=== PATIENT | male | born 1995 | race Caucasian/White ===

== ENCOUNTER 2018-01-31 19:16 | Emergency (ER) | payer OTHER ==
[2018-01-31] MEDS ORDERED: TETANUS & DIPHTHERIA TOX,ADULT 0.5 ML VIAL ONE (19:49)
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
[2018-01-31 21:01] VITALS: TEMP 98.3
[2018-01-31 21:02] VITALS: BP 120/78; O2SAT 95
== END 2018-01-31 20:56 | disposition home or self-care (01) ==
LOC: ER 19:16
PROC: 0HQ0XZZ Repair Scalp Skin, External Approach (ICD-10-PCS; principal; 2018-01-31)
DX: S01.81XA Laceration without foreign body of other part of head, initial encounter (principal); V89.2XXA Person injured in unspecified motor-vehicle accident, traffic, initial encounter; Y93.89 Activity, other specified; Z88.6 Allergy status to analgesic agent; Z23 Encounter for immunization
CPT/HCPCS: 70450; 72125; 90714; 99285

== ENCOUNTER 2018-02-10 18:14 | Emergency (ER) | payer OTHER ==
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
--- NOTE | 2018-02-10 18:23 | EDPHYS ---
Physician Documentation [facility] Name: Will Wilson Age: 23 yrs Sex: Male : 1995 Arrival Date: 02/10/2018 Time: 18:16 Bed 13 Private MD: ED Physician Canelo Will HPI: 02/10 18:29 This 23 yrs old Male presents to ER via Ambulatory with complaints of Staple snw Removal. 18:29 The patient has pancho on the right frontal area. Previous treatment: The patient was snw initially treated 10 day(s) ago, the care was rendered at [facility]. Sutures/pancho progress: The patient has no c/o's. The wound is well-healing with no redness, swelling, discharge, or dehiscence reported. The patient has not experienced similar symptoms in the past. The patient has not recently seen a physician. no complaints. Historical: - Allergies: 18:18 Ibuprofen (Hives); hj - Home Meds: 18:18 None [Active]; hj - PMHx: 18:18 ADD/ADHD; Anxiety; hj - PSHx: 18:18 None; hj - Immunization history:: Adult Immunizations up to date. - Social history:: Smoking status: Patient/guardian denies using tobacco, Patient/guardian denies using street drugs. - Ebola Screening: : Patient negative for fever greater than or equal to 101.5 degrees Fahrenheit, and additional compatible Ebola Virus Disease symptoms Patient denies exposure to infectious person Patient denies travel to an Ebola-affected area in the 21 days before illness onset. ROS: 18:24 Constitutional: Negative for fever, chills, and weight loss, Eyes: Negative for injury, snw pain, redness, and discharge, ENT: Negative for injury, pain, and discharge, Neck: Negative for injury, pain, and swelling, Cardiovascular: Negative for chest pain, palpitations, and edema, Respiratory: Negative for shortness of breath, cough, wheezing, and pleuritic chest pain, Abdomen/GI: Negative for abdominal pain, nausea, vomiting, diarrhea, and constipation, Back: Negative for injury and pain, : Negative for injury, bleeding, discharge, and swelling, MS/Extremity: Negative for injury and deformity, Skin: Negative for injury, rash, and discoloration, Psych: Negative for depression, anxiety, suicide ideation, homicidal ideation, and hallucinations, Allergy/Immunology: Negative for hives, rash, and allergies. 18:24 Neuro: Positive for of the 5 pancho to right top of head x 10d, here for removal. Exam: 18:24 Constitutional: This is a well developed, well nourished patient who is awake, alert, snw and in no acute distress. Eyes: Pupils equal round and reactive to light, extra-ocular motions intact. Lids and lashes normal. Conjunctiva and sclera are non-icteric and not injected. Cornea within normal limits. Periorbital areas with no swelling, redness, or edema. ENT: Nares patent. No nasal discharge, no septal abnormalities noted. Tympanic membranes are normal and external auditory canals are clear. Oropharynx with no redness, swelling, or masses, exudates, or evidence of obstruction, uvula midline. Mucous membranes moist. Neck: Trachea midline, no thyromegaly or masses palpated, and no cervical lymphadenopathy. Supple, full range of motion without nuchal rigidity, or vertebral point tenderness. No Meningismus. Chest/axilla: Normal chest wall appearance and motion. Nontender with no deformity. No lesions are appreciated. Back: No spinal tenderness. No costovertebral tenderness. Full range of motion. Skin: Warm, dry with normal turgor. Normal color with no rashes, no lesions, and no evidence of cellulitis. MS/ Extremity: Pulses equal, no cyanosis. Neurovascular intact. Full, normal range of motion. Neuro: Awake and alert, GCS 15, oriented to person, place, time, and situation. Cranial nerves II-XII grossly intact. Motor strength 5/5 in all extremities. Sensory grossly intact. Cerebellar exam normal. Normal gait. 18:24 Head/face: Noted is 5 pancho over well healed wound - here for removal. Vital Signs: 18:18 BP 108 / 74; Pulse 67; Resp 18; Temp 97.5(TE); Pulse Ox 98% ; Weight 74.84 kg; Height 5 hj ft. 7 in. (170.18 cm); Pain 0/10; 18:18 Body Mass Index 25.84 (74.84 kg, 170.18 cm) hj MDM: 18:23 Patient medically screened. snw 18:23 Data reviewed: vital signs, nurses notes. Data interpreted: Pulse oximetry: is 98 %. snw Interpretation: normal. Special discussion: Based on the history and exam findings, there is no indication for further emergent testing or inpatient evaluation. I discussed with the patient/guardian the need to see the primary care provider for further evaluation of the symptoms. Medical screen evaluation completed. [facility] emergency medical condition absent. Administered Medications: No medications were administered Disposition: 02/11 06:39 Co-signature as Attending Physician, Canelo Will MD I agree with the assessment and [facility] plan of care. Disposition: 02/10/18 18:23 Discharged to Home. Impression: Encounter for screening, unspecified. - Condition is Stable. - Medication Reconciliation Form, Thank You Letter, Antibiotic Education, Prescription Opioid Use form. - Follow up: Private Physician; When: 2 - 3 days; Reason: Recheck today's complaints, Continuance of care, Re-evaluation by your physician. Follow up: Emergency Department; When: As needed; Reason: Worsening of condition. Signatures: Canelo Will MD MD cha Therrien, Shelly, MANAGER [employer]ARM[employer] MANAGER [employer] Charles Chacon, RN RN hj Sergo Guerra RN RN mg2 Corrections: (The following items were deleted from the chart) 02/10 18:29 18:23 02/10/2018 18:23 Discharged to Home. Impression: Encounter for screening, mg2 unspecified. Condition is Stable. Forms are Medication Reconciliation Form, Thank You Letter, Antibiotic Education, Prescription Opioid Use. Follow up: Private Physician; When: 2 - 3 days; Reason: Recheck today's complaints, Continuance of care, Re-evaluation by your physician. Follow up: Emergency Department; When: As needed; Reason: Worsening of condition. snw
[2018-02-10 18:59] VITALS: BP 108/74; TEMP 97.5; O2SAT 98
== END 2018-02-10 18:29 | disposition home or self-care (01) ==
LOC: ER 18:14
DX: Z48.02 Encounter for removal of sutures (principal)
CPT/HCPCS: 99281

== ENCOUNTER 2018-03-30 19:49 | Emergency (ER) | payer OTHER ==
[2018-03-30] MEDS ORDERED: ONDANSETRON 4 MG (ODT) TAB ONE (20:31)
--- NOTE | 2018-03-30 20:32 | ER ---
Nurse's Notes [facility] Name: Will Wilson Age: 23 yrs Sex: Male : 1995 Arrival Date: 03/30/2018 Time: 19:51 Bed 18 Private MD: Jeet Cobos Diagnosis: Vomiting Presentation: 03/30 19:55 Presenting complaint: Patient states: vomiting this morning. pt denies Diarrhea. pt c/o ak1 abd pain this morning. Transition of care: patient was not received from another setting of care. Onset of symptoms was March 30, 2018. Risk Assessment: Do you want to hurt yourself or someone else? Patient reports no desire to harm self or others. Initial Sepsis Screen: Does the patient meet any 2 criteria? No. Patient's initial sepsis screen is negative. Does the patient have a suspected source of infection? No. Patient's initial sepsis screen is negative. Care prior to arrival: None. 19:55 Method Of Arrival: Ambulatory ak1 19:55 Acuity: CHER 4 ak1 Triage Assessment: 19:57 General: Appears in no apparent distress. Pain: Denies pain. GI: Reports nausea, ak1 vomiting. 20:00 General: Behavior is calm, cooperative, appropriate for age. jb4 Historical: - Allergies: 19:57 Ibuprofen (Hives); ak1 - Home Meds: 19:57 None [Active]; ak1 - PMHx: 19:57 ADD/ADHD; Anxiety; ak1 - PSHx: 19:57 None; ak1 - Immunization history:: Adult Immunizations unknown. - Social history:: Smoking status: Patient/guardian denies using tobacco. - Ebola Screening: : No symptoms or risks identified at this time. Screenin:08 Abuse screen: Denies threats or abuse. Nutritional screening: No deficits noted. jb4 Tuberculosis screening: No symptoms or risk factors identified. Fall Risk None identified. Assessment: 20:08 General: Appears in no apparent distress. comfortable, Behavior is calm, cooperative, jb4 appropriate for age. Pain: Denies pain. Neuro: Level of Consciousness is awake, alert, obeys commands, Oriented to person, place, time, situation. Cardiovascular: Patient's skin is warm and dry. Respiratory: Airway is patent Respiratory effort is even, unlabored, Respiratory pattern is regular, symmetrical. GI: Abdomen is flat, non-distended, Reports I vomited once this morning at work and had some nausea after, but I went home and slept it off. My job just wanted me to come and get checked out. I have not had any nausea or vomiting since. : No signs and/or symptoms were reported regarding the genitourinary system. EENT: No signs and/or symptoms were reported regarding the EENT system. Derm: Skin is intact, Skin is pink, warm \T\ dry. Musculoskeletal: Circulation, motion, and sensation intact. 20:49 Reassessment: Patient appears in no apparent distress at this time. Patient and/or jb4 family updated on plan of care and expected duration. Pain level reassessed. Patient is alert, oriented x 3, equal unlabored respirations, skin warm/dry/pink. Discussed D/c, F/u with pt ,denies questions or concerns. Patient states feeling better. Vital Signs: 19:55 BP 122 / 79; Pulse 90; Resp 18; Temp 97.2; Pulse Ox 98% on R/A; Weight 74.84 kg (R); ak1 Height 5 ft. 7 in. (170.18 cm) (R); Pain 0/10; 20:30 BP 115 / 78; Pulse 62; Resp 16; Pulse Ox 100% on R/A; jb4 19:55 Body Mass Index 25.84 (74.84 kg, 170.18 cm) ak1 ED Course: 19:51 Patient arrived in ED. as 19:52 Jeet Cobos MD is Private Physician. as 19:55 Arm band placed on. ak1 19:56 Triage completed. ak1 20:02 Elio Atkins, BONI is Primary Nurse. jb4 20:08 Patient has correct armband on for positive identification. Bed in low position. Call jb4 light in reach. Side rails up X 1. Pulse ox on. NIBP on. 20:08 No provider procedures requiring assistance completed. jb4 20:09 Brayan Khan MD is Attending Physician. 20:49 Patient did not have IV access during this emergency room visit. jb4 Administered Medications: 20:31 Drug: Zofran 4 mg Route: PO; jb4 Outcome: 20:32 Discharge ordered by . 20:49 Discharged to home ambulatory. jb4 20:49 Condition: stable 20:49 Discharge instructions given to patient, Instructed on discharge instructions, follow up and referral plans. medication usage, Demonstrated understanding of instructions, follow-up care, medications, Prescriptions given X 1. 20:51 Patient left the ED. jb4 Signatures: Jolie Garcia Amber, RN RN ak1 Elio Atkins RN RN jb4 Brayan Khan MD MD gs Corrections: (The following items were deleted from the chart) 22:15 20:08 General: Appears in no apparent distress. comfortable, jb4 jb4 22:16 21:49 Patient did not have IV access during this emergency room visit. jb4 jb4
--- NOTE | 2018-03-30 20:32 | EDPHYS ---
Physician Documentation [facility] Name: Will Wilson Age: 23 yrs Sex: Male : 1995 Arrival Date: 03/30/2018 Time: 19:51 Bed 18 Private MD: Jeet Cobos ED Physician Brayan Khan HPI: 03/30 20:27 This 23 yrs old Male presents to ER via Ambulatory with complaints of gs Vomiting. 20:27 The patient presents to the emergency department with vomiting. Onset: The gs symptoms/episode began/occurred this morning. Possible causes: bad food exposure. The symptoms are aggravated by nothing. The symptoms are alleviated by nothing. Associated signs and symptoms: Pertinent negatives: abdominal pain. Severity of symptoms: At their worst the symptoms were moderate in the emergency department the symptoms have resolved and did so earlier today. The patient has experienced similar episodes in the past, a few times. Historical: - Allergies: 19:57 Ibuprofen (Hives); ak1 - Home Meds: 19:57 None [Active]; ak1 - PMHx: 19:57 ADD/ADHD; Anxiety; ak1 - PSHx: 19:57 None; ak1 - Immunization history:: Adult Immunizations unknown. - Social history:: Smoking status: Patient/guardian denies using tobacco. - Ebola Screening: : No symptoms or risks identified at this time. ROS: 20:27 All other systems are negative. gs Exam: 20:27 Head/Face: Normocephalic, atraumatic. Eyes: Pupils equal round and reactive to light, gs extra-ocular motions intact. Lids and lashes normal. Conjunctiva and sclera are non-icteric and not injected. Cornea within normal limits. Periorbital areas with no swelling, redness, or edema. ENT: Nares patent. No nasal discharge, no septal abnormalities noted. Tympanic membranes are normal and external auditory canals are clear. Oropharynx with no redness, swelling, or masses, exudates, or evidence of obstruction, uvula midline. Mucous membranes moist. Neck: Trachea midline, no thyromegaly or masses palpated, and no cervical lymphadenopathy. Supple, full range of motion without nuchal rigidity, or vertebral point tenderness. No Meningismus. Chest/axilla: Normal chest wall appearance and motion. Nontender with no deformity. No lesions are appreciated. Cardiovascular: Regular rate and rhythm with a normal S1 and S2. No gallops, murmurs, or rubs. Normal PMI, no JVD. No pulse deficits. Respiratory: Lungs have equal breath sounds bilaterally, clear to auscultation and percussion. No rales, rhonchi or wheezes noted. No increased work of breathing, no retractions or nasal flaring. Abdomen/GI: Soft, non-tender, with normal bowel sounds. No distension or tympany. No guarding or rebound. No evidence of tenderness throughout. Back: No spinal tenderness. No costovertebral tenderness. Full range of motion. Skin: Warm, dry with normal turgor. Normal color with no rashes, no lesions, and no evidence of cellulitis. MS/ Extremity: Pulses equal, no cyanosis. Neurovascular intact. Full, normal range of motion. Neuro: Awake and alert, GCS 15, oriented to person, place, time, and situation. Cranial nerves II-XII grossly intact. Motor strength 5/5 in all extremities. Sensory grossly intact. Cerebellar exam normal. Normal gait. 20:27 Constitutional: The patient appears alert, awake. Vital Signs: 19:55 BP 122 / 79; Pulse 90; Resp 18; Temp 97.2; Pulse Ox 98% on R/A; Weight 74.84 kg (R); ak1 Height 5 ft. 7 in. (170.18 cm) (R); Pain 0/10; 20:30 BP 115 / 78; Pulse 62; Resp 16; Pulse Ox 100% on R/A; jb4 19:55 Body Mass Index 25.84 (74.84 kg, 170.18 cm) ak1 MDM: 20:25 Patient medically screened. gs 20:27 Differential diagnosis: gastritis, viral gastroenteritis, gastroenteritis. Data gs reviewed: vital signs, nurses notes. Response to treatment: the patient's symptoms have resolved after treatment, and as a result, I will discharge patient. Administered Medications: 20:31 Drug: Zofran 4 mg Route: PO; jb4 Disposition: 03/30/18 20:32 Discharged to Home. Impression: Vomiting. - Condition is Stable. - Discharge Instructions: Nausea and Vomiting, Adult. - Prescriptions for Zofran 4 mg Oral Tablet - take 1 tablet by ORAL route every 12 hours As needed; 6 tablet. - Work release form, Medication Reconciliation Form, Thank You Letter, Antibiotic Education, Prescription Opioid Use form. - Follow up: Private Physician; When: 2 - 3 days; Reason: Re-evaluation by your physician. Signatures: Mindy Mullen RN RN ak1 Elio Atkins RN RN jb4 Brayan Khan MD MD gs Corrections: (The following items were deleted from the chart) 20:51 20:32 03/30/2018 20:32 Discharged to Home. Impression: Vomiting. Condition is Stable. jb4 Forms are Medication Reconciliation Form, Thank You Letter, Antibiotic Education, Prescription Opioid Use. Follow up: Private Physician; When: 2 - 3 days; Reason: Re-evaluation by your physician. gs
== END 2018-03-30 20:51 | disposition home or self-care (01) ==
LOC: ER 19:49
DX: R11.10 Vomiting, unspecified (principal)
CPT/HCPCS: 99283

== ENCOUNTER 2018-09-28 21:10 | Emergency (ER) | payer OTHER ==
--- NOTE | 2018-09-28 22:15 | EDPHYS ---
Physician Documentation [facility] Name: Will Wilson Age: 23 yrs Sex: Male : 1995 Arrival Date: 09/28/2018 Time: 21:14 Bed 15 Private MD: Jeet Cobos ED Physician Fei Sapp HPI: 09/28 22:08 This 23 yrs old Male presents to ER via Ambulatory with complaints of Fever, jmm Sore Throat, Weakness. 22:08 Onset: The symptoms/episode began/occurred gradually, 3 day(s) ago. Modifying factors: jmm there are no obvious modifying factors. Associated signs and symptoms: Pertinent positives: sinus congestion, sore throat. This is a 23 year old male with a history of ADD/ADHD that presents to the ED with complaints of sore throat, sinus congestion, fever beginning this past Friday. Patient states he is currently on day 3 of Z-Pack. . Historical: - Allergies: 21:24 Ibuprofen (Hives); lp1 - Home Meds: 21:24 Vyvanse oral oral [Active]; lp1 - PMHx: 21:24 ADD/ADHD; Anxiety; lp1 - PSHx: 21:24 None; lp1 - Immunization history:: Adult Immunizations up to date. - Social history:: Smoking status: Patient/guardian denies using tobacco. - Ebola Screening: : No symptoms or risks identified at this time. ROS: 22:08 Constitutional: Positive for fever. jmm 22:08 ENT: Positive for sinus congestion, sore throat. 22:08 All other systems are negative. Exam: 22:08 Constitutional: This is a well developed, well nourished patient who is awake, alert, jmm and in no acute distress. Head/Face: atraumatic. Eyes: EOMI, no conjunctival erythema appreciated 22:08 Neck: Trachea midline, Supple Chest/axilla: Normal chest wall appearance and motion. Cardiovascular: Regular rate and rhythm. No edema appreciated Respiratory: Normal respirations, no respiratory distress appreciated Abdomen/GI: Non distended, soft Skin: General appearance color normal MS/ Extremity: Moves all extremities, no obvious deformities appreciated, no edema noted to the lower extremities Neuro: Awake and alert, normal gait Psych: Behavior is normal, Mood is normal, Patient is cooperative and pleasant 22:08 ENT: TM's: are normal, Posterior pharynx: Airway: normal, Uvula: normal, midline, erythema, that is mild, exudate, is not appreciated. Vital Signs: 21:22 BP 115 / 77; Pulse 89; Resp 18; Temp 99.8(O); Pulse Ox 98% on R/A; Weight 77.11 kg; lp1 Height 5 ft. 7 in. (170.18 cm); Pain 4/10; 22:30 BP 111 / 73; Pulse 78; Resp 16; Pulse Ox 100% on R/A; jb4 21:22 Body Mass Index 26.63 (77.11 kg, 170.18 cm) lp1 MDM: 22:08 Patient medically screened. [facility] 22:14 Data reviewed: vital signs, nurses notes. Counseling: I had a detailed discussion with [facility] the patient and/or guardian regarding: the historical points, exam findings, and any diagnostic results supporting the discharge/admit diagnosis, the need for outpatient follow up, to return to the emergency department if symptoms worsen or persist or if there are any questions or concerns that arise at home. 22:30 ED course: Sore throat may be due to post nasal drip. Patient is alert and non toxic in jmm appearance in the ED. No signs of resp distress are appreciated. Patient advised to continue antibiotics and follow up with Dr. Cobos in 1 to 2 days for reevaluation. Patient was otherwise given strict return precautions. Patient understood and agrees with the plan of care. . Administered Medications: 22:25 Drug: Dexamethasone 10 mg Route: IM; Site: right gluteus; banner 22:38 Follow up: Response: No adverse reaction 4 Disposition: 09/28/18 22:15 Discharged to Home. Impression: Acute pharyngitis. - Condition is Stable. - Discharge Instructions: Pharyngitis. - Medication Reconciliation Form, Thank You Letter, Antibiotic Education, Prescription Opioid Use, Work release form form. - Follow up: Jeet Cobos MD; When: 1 - 2 days; Reason: Recheck today's complaints, Continuance of care, Re-evaluation by your physician. Addendum: 09/30/2018 07:14 Co-signature as Attending Physician, Fei Sapp MD I agree with the assessment and t w4 plan of care. Signatures: Juan Khalil PA PA jmm Pena, Laura, RN RN lp1 Elio Atkins RN RN jb4 Fei Sapp MD MD tw4 Corrections: (The following items were deleted from the chart) 09/28 22:47 22:15 09/28/2018 22:15 Discharged to Home. Impression: Acute pharyngitis. Condition is jb4 Stable. Forms are Medication Reconciliation Form, Thank You Letter, Antibiotic Education, Prescription Opioid Use. Follow up: Jeet Cobos; When: 1 - 2 days; Reason: Recheck today's complaints, Continuance of care, Re-evaluation by your physician. neida
--- NOTE | 2018-09-28 22:15 | ER ---
Nurse's Notes [facility] Name: Will Wilson Age: 23 yrs Sex: Male : 1995 Arrival Date: 09/28/2018 Time: 21:14 Bed 15 Private MD: Jeet Cobos Diagnosis: Acute pharyngitis Presentation: 09/28 21:21 Presenting complaint: Patient states: Sore throat, generalized weakness, fever since lp1 Friday; Seen at [place] and negative for Flu and Strep and sent home with Z-pack prescription; States unknown fever at home, Tylenol last taken 6 hours ago; States vomiting today. Transition of care: patient was not received from another setting of care. Onset of symptoms was September 28, 2018. Risk Assessment: Do you want to hurt yourself or someone else? Patient reports no desire to harm self or others. Initial Sepsis Screen: Does the patient meet any 2 criteria? No. Patient's initial sepsis screen is negative. Does the patient have a suspected source of infection? No. Patient's initial sepsis screen is negative. Care prior to arrival: None. 21:21 Method Of Arrival: Ambulatory lp1 21:21 Acuity: CHER 3 lp1 Historical: - Allergies: 21:24 Ibuprofen (Hives); lp1 - Home Meds: 21:24 Vyvanse oral oral [Active]; lp1 - PMHx: 21:24 ADD/ADHD; Anxiety; lp1 - PSHx: 21:24 None; lp1 - Immunization history:: Adult Immunizations up to date. - Social history:: Smoking status: Patient/guardian denies using tobacco. - Ebola Screening: : No symptoms or risks identified at this time. Screenin:24 Abuse screen: Denies threats or abuse. Abuse screen: Denies injuries from another. lp1 Nutritional screening: No deficits noted. Tuberculosis screening: No symptoms or risk factors identified. Fall Risk None identified. Assessment: 21:48 General: Appears in no apparent distress. uncomfortable, Behavior is calm, cooperative, jb4 appropriate for age. Pain: Denies pain. Neuro: Level of Consciousness is awake, alert, obeys commands, Oriented to person, place, time, situation. Cardiovascular: Patient's skin is warm and dry. Respiratory: Airway is patent Respiratory effort is even, unlabored, Respiratory pattern is regular, symmetrical. GI: No signs and/or symptoms were reported involving the gastrointestinal system. : No deficits noted. EENT: Throat is clear is reddened. Derm: Skin is intact, Skin is pink, warm \T\ dry. Musculoskeletal: Circulation, motion, and sensation intact. 22:42 Reassessment: Patient appears in no apparent distress at this time. Patient and/or jb4 family updated on plan of care and expected duration. Pain level reassessed. Patient is alert, oriented x 3, equal unlabored respirations, skin warm/dry/pink. PT discharged home with friend. Ambulated with steady gate. Vital Signs: 21:22 BP 115 / 77; Pulse 89; Resp 18; Temp 99.8(O); Pulse Ox 98% on R/A; Weight 77.11 kg; lp1 Height 5 ft. 7 in. (170.18 cm); Pain 4/10; 22:30 BP 111 / 73; Pulse 78; Resp 16; Pulse Ox 100% on R/A; jb4 21:22 Body Mass Index 26.63 (77.11 kg, 170.18 cm) lp1 ED Course: 21:14 Patient arrived in ED. es 21:15 Jeet Cobos MD is Private Physician. es 21:22 Triage completed. lp1 21:22 Arm band placed on left wrist. lp1 21:30 Patient has correct armband on for positive identification. Bed in low position. Call jb4 light in reach. Side rails up X 1. Pulse ox on. NIBP on. 21:36 [facility]il [facility] 21:37 Fei Sapp MD is Attending Physician. [facility] 21:42 Elio Atkins, BONI is Primary Nurse. jb4 22:14 Jeet Cobos MD is Referral Physician. [facility] 22:44 No provider procedures requiring assistance completed. Patient did not have IV access jb4 during this emergency room visit. Administered Medications: 22:25 Drug: Dexamethasone 10 mg Route: IM; Site: right gluteus; jb4 22:38 Follow up: Response: No adverse reaction jb4 Outcome: 22:15 Discharge ordered by . [facility] 22:44 Discharged to home ambulatory, with friend. jb4 22:44 Condition: stable 22:44 Discharge instructions given to patient, Instructed on discharge instructions, follow up and referral plans. medication usage, Demonstrated understanding of instructions, follow-up care, medications. 22:47 Patient left the ED. jb4 Signatures: Juan Khalil PA PA jmm Salyer, Edna es Pena, Laura, RN RN lp1 Elio Atkins RN RN jb4 Corrections: (The following items were deleted from the chart) 22:43 21:48 EENT: jb jb 21:30 No provider procedures requiring assistance completed. jb4 jb 21:30 Patient did not have IV access during this emergency room visit. jb4 jb4
[2018-09-28] MEDS ORDERED: DEXAMETHASONE 10 MG/ML VIAL ONE (22:34)
[2018-09-28 22:50] VITALS: TEMP 99.8
[2018-09-28 22:52] VITALS: BP 111/73; O2SAT 100
== END 2018-09-28 22:47 | disposition home or self-care (01) ==
LOC: ER 21:10
DX: J02.9 Acute pharyngitis, unspecified (principal); F90.9 Attention-deficit hyperactivity disorder, unspecified type; F41.9 Anxiety disorder, unspecified; Z88.6 Allergy status to analgesic agent
CPT/HCPCS: J1100

== ENCOUNTER 2020-03-29 15:57 | Emergency (ER) | payer BC ==
[2020-03-29] MEDS ORDERED: IPRATROPIUM BROM 0.5MG/2.5ML ONE (16:19)
[2020-03-29] MEDS ORDERED: NA CHLORIDE 0.9% 1,000 ML ONE (16:19)
[2020-03-29] MEDS ORDERED: DIPHENHYDRAMINE 50 MG/ML VIAL ONE (16:19)
[2020-03-29] MEDS ORDERED: METHYLPREDNISOLONE 125 MG INJ ONE (16:19)
[2020-03-29] MEDS ORDERED: ALBUTEROL 2.5 MG/3 ML NEB SOL ONE (16:19)
[2020-03-29] MEDS ORDERED: FAMOTIDINE 20 MG/2 ML VIAL IV ONE (16:20)
[2020-03-29] MEDS ORDERED: EPINEPHRINE/PF 1 MG/ML AMP ONE (16:22)
--- NOTE | 2020-03-29 18:01 | EDPHYS ---
Physician Documentation [facility] Name: Will Wilson Age: 25 yrs Sex: Male : 1995 Arrival Date: 03/29/2020 Time: 15:59 Bed 2 Private MD: ED Physician Adonis Menard HPI: 03/29 16:19 This 25 yrs old Male presents to ER via Wheelchair with complaints of jr8 Allergic Reaction, Breathing Difficulty. 16:19 The patient presents with difficulty swallowing, itching, redness of skin, shortness of jr8 breath. Onset: The symptoms/episode began/occurred acutely, today. Associated signs and symptoms: The patient has no apparent associated signs or symptoms. Possible causes: NSAIDs, ibuprofen. Severity of symptoms: At their worst the symptoms were moderate in the emergency department the symptoms are unchanged. The patient has experienced a previous episode. The patient has not recently seen a physician. Stated that he has history of NSAID related allergy. Accidently took some today from another person and then started to have allergy symptoms . Historical: - Allergies: 16:17 Ibuprofen (Hives); ss - PMHx: 16:17 ADD/ADHD; Anxiety; ss - Immunization history:: Adult Immunizations up to date. - Social history:: Smoking status: Patient denies any tobacco usage or history of. ROS: 16:19 Eyes: Negative for injury, pain, redness, and discharge, ENT: Negative for injury, jr8 pain, and discharge, Neck: Negative for injury, pain, and swelling, Cardiovascular: Negative for chest pain, palpitations, and edema, Abdomen/GI: Negative for abdominal pain, nausea, vomiting, diarrhea, and constipation, Back: Negative for injury and pain, MS/Extremity: Negative for injury and deformity, Neuro: Negative for headache, weakness, numbness, tingling, and seizure. 16:19 Respiratory: Positive for shortness of breath. 16:19 Skin: Positive for erythema, rash. Exam: 16:19 Eyes: Pupils equal round and reactive to light, extra-ocular motions intact. Lids and jr8 lashes normal. Conjunctiva and sclera are non-icteric and not injected. Cornea within normal limits. Periorbital areas with no swelling, redness, or edema. Neck: Trachea midline, no thyromegaly or masses palpated, and no cervical lymphadenopathy. Supple, full range of motion without nuchal rigidity, or vertebral point tenderness. No Meningismus. Cardiovascular: Regular rate and rhythm with a normal S1 and S2. No gallops, murmurs, or rubs. Normal PMI, no JVD. No pulse deficits. Respiratory: Lungs have equal breath sounds bilaterally, clear to auscultation and percussion. No rales, rhonchi or wheezes noted. No increased work of breathing, no retractions or nasal flaring. Abdomen/GI: Soft, non-tender, with normal bowel sounds. No distension or tympany. No guarding or rebound. No evidence of tenderness throughout. Back: No spinal tenderness. No costovertebral tenderness. Full range of motion. MS/ Extremity: Pulses equal, no cyanosis. Neurovascular intact. Full, normal range of motion. Neuro: Awake and alert, GCS 15, oriented to person, place, time, and situation. Cranial nerves II-XII grossly intact. Motor strength 5/5 in all extremities. Sensory grossly intact. Cerebellar exam normal. Normal gait. 16:19 ENT: Mouth: Lips: moist, Oral mucosa: pink and intact, moist, Gums: pink, Tongue: is moist, Posterior pharynx: Airway: patent, Tonsils: are normal in appearance, Uvula: midline, edematous, swelling, is not appreciated, erythema, that is mild. 16:19 Skin: rash a moderate rash is noted, rash can be described as erythematous, on the face and chest. Vital Signs: 16:04 BP 136 / 100; Pulse 98; Resp 21; Pulse Ox 100% on R/A; Weight 79.38 kg; Height 5 ft. 7 ss in. (170.18 cm); Pain 0/10; 16:18 Resp 14; Pulse Ox 100% on 2 lpm NC; Pain 0/10; ss 17:04 BP 131 / 97; Pulse 89; Resp 18; Pulse Ox 99% on R/A; ph 17:54 BP 117 / 81; Pulse 77; Resp 13; Pulse Ox 100% ; sv 16:04 Body Mass Index 27.41 (79.38 kg, 170.18 cm) MDM: 16:05 Patient medically screened. [facility] 17:59 Data reviewed: vital signs, nurses notes, and as a result, I will discharge patient. jr8 Data interpreted: Pulse oximetry: on room air is 100 %. Interpretation: normal. Counseling: I had a detailed discussion with the patient and/or guardian regarding: the historical points, exam findings, and any diagnostic results supporting the discharge/admit diagnosis, the need for outpatient follow up, a family practitioner, to return to the emergency department if symptoms worsen or persist or if there are any questions or concerns that arise at home. Response to treatment: the patient's symptoms have resolved after treatment. 03/29 16:06 Order name: IV; Complete Time: 16:19 jr8 Administered Medications: 16:10 Drug: EPINEPHrine 1mg/mL 1:1,000 0.5 mg Route: IM; Site: left deltoid; ss 18:20 Follow up: Response: No adverse reaction; Marked relief of symptoms ph 16:12 Drug: NS 0.9% 1000 ml Route: IV; Rate: 1000 ml; Site: right antecubital; ph 18:19 Follow up: Response: No adverse reaction; IV Status: Completed infusion; IV Intake: ph 1000ml 16:13 Drug: SOLU-Medrol 125 mg Route: IVP; Site: right antecubital; ph 18:20 Follow up: Response: No adverse reaction; Marked relief of symptoms ph 16:14 Drug: Benadryl 50 mg Route: IVP; Site: right antecubital; ph 18:20 Follow up: Response: No adverse reaction; Marked relief of symptoms ph 16:15 Drug: Pepcid 20 mg Route: IVP; Site: right antecubital; ph 18:19 Follow up: Response: No adverse reaction; Marked relief of symptoms ph Disposition: 18:13 Co-signature as Attending Physician, Adonis Menard MD. ma2 Disposition: 03/29/20 18:00 Discharged to Home. Impression: Anaphylactic reaction due to adverse effect of correct drug or medicament properly administered. - Condition is Stable. - Discharge Instructions: Anaphylactic Reaction, Adult. - Prescriptions for Pepcid 20 mg Oral Tablet - take 1 tablet by ORAL route every 12 hours for 5 days; 10 tablet. Prednisone 20 mg Oral Tablet - take 2 tablet by ORAL route once daily for 5 days; 10 tablet. - Medication Reconciliation Form, Thank You Letter, Antibiotic Education, Prescription Opioid Use, Work release form form. - Follow up: Private Physician; When: 2 - 3 days; Reason: Recheck today's complaints, Continuance of care, Re-evaluation by your physician. - Problem is new. - Symptoms have improved. - Notes: Benadryl as needed every 6 hours Signatures: Bailey Carias RN RN Torres Thomas PA PA jr8 Juliana Loyola RN RN Adonis Menard MD MD ma2 Corrections: (The following items were deleted from the chart) 18:20 18:00 03/29/2020 18:00 Discharged to Home. Impression: Anaphylactic reaction due to ph adverse effect of correct drug or medicament properly administered. Condition is Stable. Forms are Medication Reconciliation Form, Thank You Letter, Antibiotic Education, Prescription Opioid Use. Follow up: Private Physician; When: 2 - 3 days; Reason: Recheck today's complaints, Continuance of care, Re-evaluation by your physician. Problem is new. Symptoms have improved. jr8
--- NOTE | 2020-03-29 18:01 | ER ---
Nurse's Notes [facility] Hank Name: Will Wilson Age: 25 yrs Sex: Male : 1995 Arrival Date: 03/29/2020 Time: 15:59 Bed 2 Private MD: Diagnosis: Anaphylactic reaction due to adverse effect of correct drug or medicament properly administered Presentation: 03/29 16:04 Chief complaint: Patient states: took Ibuprofen 1 hour ago. Pt reports he is allergic ss to ibuprofen and didn't realize was he was taking. C/o shortness of breath and rash. Coronavirus screen: Client denies travel out of the [place] in the last 14 days. Ebola Screen: Patient denies exposure to infectious person. Patient denies travel to an Ebola-affected area in the 21 days before illness onset. Onset: The symptoms/episode began/occurred suddenly. Anaphylaxis evaluation, difficulty breathing. Initial Sepsis Screen: Does the patient meet any 2 criteria? RR > 20 per min. HR > 90 bpm. Does the patient have a suspected source of infection? No. Patient's initial sepsis screen is negative. Risk Assessment: Do you want to hurt yourself or someone else? Patient reports no desire to harm self or others. Onset of symptoms was March 29, 2020. 16:04 Method Of Arrival: Wheelchair ss 16:04 Acuity: CHER 1 ss Historical: - Allergies: 16:17 Ibuprofen (Hives); ss - PMHx: 16:17 ADD/ADHD; Anxiety; ss - Immunization history:: Adult Immunizations up to date. - Social history:: Smoking status: Patient denies any tobacco usage or history of. Screenin:22 Abuse screen: Denies threats or abuse. Denies injuries from another. Nutritional ph screening: No deficits noted. Tuberculosis screening: No symptoms or risk factors identified. Fall Risk None identified. Assessment: 16:20 General: Appears in no apparent distress. uncomfortable, well groomed, Behavior is ph calm, cooperative, appropriate for age. Pain: Denies pain. Neuro: Level of Consciousness is awake, alert, obeys commands, Oriented to person, place, time, situation. Cardiovascular: Capillary refill < 3 seconds in bilateral fingers Patient's skin is warm and dry. Respiratory: Reports shortness of breath at rest Airway is patent Respiratory effort is even, unlabored, Respiratory pattern is regular, symmetrical, Breath sounds are clear bilaterally. GI: No signs and/or symptoms were reported involving the gastrointestinal system. Derm: Skin is intact, is healthy with good turgor, Skin is pink, warm \T\ dry. face and chest noted to be red. Musculoskeletal: Circulation, motion, and sensation intact. Range of motion: intact in all extremities. 17:03 Reassessment: Patient appears in no apparent distress at this time. Patient and/or ph family updated on plan of care and expected duration. Pain level reassessed. Patient is alert, oriented x 3, equal unlabored respirations, skin warm/dry/pink. Pt slightly drowsy, reports that SOB is improving, chest and face no longer red, VSS, will continue to monitor. 17:58 Reassessment: Patient appears in no apparent distress at this time. Patient and/or ph family updated on plan of care and expected duration. Pain level reassessed. Patient is alert, oriented x 3, equal unlabored respirations, skin warm/dry/pink. Vital Signs: 16:04 BP 136 / 100; Pulse 98; Resp 21; Pulse Ox 100% on R/A; Weight 79.38 kg; Height 5 ft. 7 ss in. (170.18 cm); Pain 0/10; 16:18 Resp 14; Pulse Ox 100% on 2 lpm NC; Pain 0/10; ss 17:04 BP 131 / 97; Pulse 89; Resp 18; Pulse Ox 99% on R/A; ph 17:54 BP 117 / 81; Pulse 77; Resp 13; Pulse Ox 100% ; sv 16:04 Body Mass Index 27.41 (79.38 kg, 170.18 cm) ED Course: 15:59 Patient arrived in ED. ds1 16:05 Torres Thomas PA is PHCP. jr8 16:05 Adonis Menard MD is Attending Physician. jr8 16:10 Inserted saline lock: 20 gauge in left antecubital area, using aseptic technique. ph 16:17 Triage completed. ss 16:18 Juliana Loyola, BONI is Primary Nurse. ph 16:18 Arm band placed on right wrist. ss 16:22 Patient has correct armband on for positive identification. Bed in low position. Call ph light in reach. Side rails up X 1. hospital monitor on. Pulse ox on. NIBP on. Door closed. Noise minimized. Warm blanket given. 18:18 No provider procedures requiring assistance completed. IV discontinued, intact, ph bleeding controlled, No redness/swelling at site. Pressure dressing applied. Administered Medications: 16:10 Drug: EPINEPHrine 1mg/mL 1:1,000 0.5 mg Route: IM; Site: left deltoid; ss 18:20 Follow up: Response: No adverse reaction; Marked relief of symptoms ph 16:12 Drug: NS 0.9% 1000 ml Route: IV; Rate: 1000 ml; Site: right antecubital; ph 18:19 Follow up: Response: No adverse reaction; IV Status: Completed infusion; IV Intake: ph 1000ml 16:13 Drug: SOLU-Medrol 125 mg Route: IVP; Site: right antecubital; ph 18:20 Follow up: Response: No adverse reaction; Marked relief of symptoms ph 16:14 Drug: Benadryl 50 mg Route: IVP; Site: right antecubital; ph 18:20 Follow up: Response: No adverse reaction; Marked relief of symptoms ph 16:15 Drug: Pepcid 20 mg Route: IVP; Site: right antecubital; ph 18:19 Follow up: Response: No adverse reaction; Marked relief of symptoms ph Intake: 18:19 IV: 1000ml; Total: 1000ml. ph Outcome: 18:00 Discharge ordered by MD. beach 18:18 Discharged to home ambulatory, with family. ph 18:18 Condition: improved 18:18 Discharge instructions given to patient, family, Instructed on discharge instructions, follow up and referral plans. medication usage, Demonstrated understanding of instructions, follow-up care, medications, Prescriptions given X 2. 18:20 Patient left the ED. ph Signatures: Leah Agrawal, RN Tamika Pearce ds1 Bailey Carias RN RN ss Roszak, Josh, PA PA jr8 Hall, Patricia, RN RN ph
[2020-03-29 18:52] VITALS: BP 117/81; O2SAT 100
== END 2020-03-29 18:20 | disposition home or self-care (01) ==
LOC: ER 15:57
DX: T88.6XXA Anaphylactic reaction due to adverse effect of correct drug or medicament properly administered, initial encounter (principal); T39.315A Adverse effect of propionic acid derivatives, initial encounter
CPT/HCPCS: 96361; 96375; 96372; 96374; 99291; 99292; J0171; J1200; J7030; J2930

== ENCOUNTER 2020-05-11 16:38 | Emergency (ER) | payer BC ==
[2020-05-11 17:38] LABS: BUN Blood Urea Nitrogen 13 mg/dL (7-18); Bicarbonate 28 mmol/L (21-32); Creatine Phosphokinase 86 U/L (39-308); Glucose Level 92 mg/dL (74-106); Potassium 3.7 mmol/L (3.5-5.1); Sodium Level 140 mmol/L (136-145)
--- NOTE | 2020-05-11 17:53 | ER ---
Nurse's Notes [facility] Hank Name: Will Wilson Age: 25 yrs Sex: Male : 1995 Arrival Date: 05/11/2020 Time: 16:40 Bed 23 Private MD: Diagnosis: Person with feared health complaint in whom no diagnosis is made Presentation: 05/11 16:43 Chief complaint: Patient states: "I had a migraine for 3 days and missed work and my aa5 work is asking me for a work note because of the COVID thing". Pt currently denies any symptoms. Coronavirus screen: At this time, the client does not indicate any symptoms associated with coronavirus-19. Ebola Screen: Patient negative for fever greater than or equal to 101.5 degrees Fahrenheit, and additional compatible Ebola Virus Disease symptoms. Initial Sepsis Screen: Does the patient meet any 2 criteria? No. Patient's initial sepsis screen is negative. Does the patient have a suspected source of infection? No. Patient's initial sepsis screen is negative. Risk Assessment: Do you want to hurt yourself or someone else? Patient reports no desire to harm self or others. Onset of symptoms was May 11, 2020. 16:43 Method Of Arrival: Ambulatory aa5 16:43 Acuity: CHER 5 aa5 Historical: - Allergies: 16:45 Ibuprofen (Hives); aa5 - Home Meds: 16:45 Vyvanse Oral [Active]; aa5 - PMHx: 16:45 ADD/ADHD; Anxiety; aa5 - PSHx: 16:45 None; aa5 - Immunization history:: Adult Immunizations up to date. - Social history:: Smoking status: Patient denies any tobacco usage or history of. Screenin:19 Abuse screen: Denies threats or abuse. Denies injuries from another. Nutritional jl7 screening: No deficits noted. Tuberculosis screening: No symptoms or risk factors identified. Fall Risk IV access (20 points). Total Gr Fall Scale indicates No Risk (0-24 pts). Assessment: 17:00 General: Appears in no apparent distress. comfortable, Behavior is calm, cooperative, jl7 appropriate for age. Pain: Denies pain. Neuro: Level of Consciousness is awake, alert, obeys commands, Oriented to person, place, time, situation. Cardiovascular: Patient's skin is warm and dry. Respiratory: Airway is patent Respiratory effort is even, unlabored, Respiratory pattern is regular, symmetrical. Derm: Skin is pink, warm \\T\\ dry. Vital Signs: 16:43 BP 118 / 82; Pulse 92; Resp 16 S; Temp 98.2(TE); Pulse Ox 99% on R/A; Pain 0/10; aa5 ED Course: 16:40 Patient arrived in ED. rg4 16:44 Triage completed. aa5 16:44 Arm band placed on. aa5 16:45 Juan Khalil PA is PHCP. [facility] 16:45 Jelani Ramos MD is Attending Physician. [facility] 16:52 Ant Gupta, RN is Primary Nurse. jl 17:19 Patient has correct armband on for positive identification. Bed in low position. Call jl7 light in reach. Side rails up X 1. 17:19 Initial lab(s) drawn, by me, sent to lab. Inserted saline lock: 20 gauge in right jl7 antecubital area, using aseptic technique. Blood collected. 18:19 No provider procedures requiring assistance completed. IV discontinued, intact, jl7 bleeding controlled, No redness/swelling at site. Pressure dressing applied. Administered Medications: No medications were administered Outcome: 17:53 Discharge ordered by . [facility] 18:19 Discharged to home ambulatory. jl7 18:19 Condition: stable 18:19 Discharge instructions given to patient, Instructed on discharge instructions, follow up and referral plans. Demonstrated understanding of instructions, follow-up care. 18:19 Patient left the ED. jl7 Signatures: Juan Khalil PA PA [facility] Ivory Maguire, RN RN Cari Roblero [facility] Ant Gupta, BONI RN jl7 Corrections: (The following items were deleted from the chart) 16:45 16:43 Chief complaint: Patient states: "I had a migraine for 3 days and missed work and aa5 my work is asking me for a work note because of the COVID thing" aa5
--- NOTE | 2020-05-11 17:53 | EDPHYS ---
Physician Documentation [facility] Name: Will Wilson Age: 25 yrs Sex: Male : 1995 Arrival Date: 05/11/2020 Time: 16:40 Bed 23 Private MD: ED Physician Jelani Ramos HPI: 05/11 17:13 This 25 yrs old Male presents to ER via Ambulatory with complaints of Work jmm Release. 17:13 body aches. Onset: The symptoms/episode began/occurred gradually, 3 day(s) ago. The jmm patient has not experienced similar symptoms in the past. This is a 25 year old male with a history of anxiety that presents to the ED with complaints of chills, nausea, headache beginning approx 3 days ago. Symptoms have resolved today. Patient states he believes he over exerted himself the day before at work. Denies cough, sore throat. . Historical: - Allergies: 16:45 Ibuprofen (Hives); aa5 - Home Meds: 16:45 Vyvanse Oral [Active]; aa5 - PMHx: 16:45 ADD/ADHD; Anxiety; aa5 - PSHx: 16:45 None; aa5 - Immunization history:: Adult Immunizations up to date. - Social history:: Smoking status: Patient denies any tobacco usage or history of. ROS: 17:13 Cardiovascular: Negative for chest pain, palpitations, and edema. jmm 17:13 Constitutional: Positive for body aches, fever. 17:13 Respiratory: Negative for cough, shortness of breath. 17:13 Neuro: Positive for headache. 17:13 All other systems are negative. Exam: 17:13 Constitutional: This is a well developed, well nourished patient who is awake, alert, jmm and in no acute distress. Head/Face: atraumatic. Eyes: EOMI, no conjunctival erythema appreciated ENT: Moist Mucus Membranes Neck: Trachea midline, Supple Chest/axilla: Normal chest wall appearance and motion. Cardiovascular: Regular rate and rhythm. No edema appreciated Respiratory: Normal respirations, no respiratory distress appreciated Abdomen/GI: Non distended, soft Back: Normal ROM Skin: General appearance color normal MS/ Extremity: Moves all extremities, no obvious deformities appreciated, no edema noted to the lower extremities Neuro: Awake and alert, normal gait Psych: Behavior is normal, Mood is normal, Patient is cooperative and pleasant Vital Signs: 16:43 BP 118 / 82; Pulse 92; Resp 16 S; Temp 98.2(TE); Pulse Ox 99% on R/A; Pain 0/10; aa5 MDM: 16:[address] [facility] 17:52 Data reviewed: vital signs, nurses notes. Counseling: I had a detailed discussion with [facility] the patient and/or guardian regarding: the historical points, exam findings, and any diagnostic results supporting the discharge/admit diagnosis, the need for outpatient follow up, to return to the emergency department if symptoms worsen or persist or if there are any questions or concerns that arise at home. ED course: Patient is alert and non toxic in appearance in the ED. Patient is advised to return to the ED if symptoms worsen. Patient understood an agrees with the plan of care. . 05/11 17:06 Order name: BMP; Complete Time: 17:51 [facility] 05/11 17:06 Order name: CPK; Complete Time: 17:51 [facility] 05/11 17:06 Order name: Saline Lock; Complete Time: 17:18 [facility] Administered Medications: No medications were administered Disposition: 05/12 07:15 Co-signature as Attending Physician, Jelani Ramos MD I agree with the assessment and kdr plan of care. Disposition: 05/11/20 17:53 Discharged to Home. Impression: Person with feared health complaint in whom no diagnosis is made. - Condition is Stable. - Discharge Instructions: Form - Return To Work. - Medication Reconciliation Form, Thank You Letter, Antibiotic Education, Prescription Opioid Use, Work release form form. - Follow up: Private Physician; When: 2 - 3 days; Reason: Recheck today's complaints, Continuance of care, Re-evaluation by your physician. Signatures: Dispatcher [employer] EDMS Jelani Ramos MD MD kdr Mickail, Joel, PA PA [facility] Ivory Maguire, BONI RN aa5 Ant Gupta RN RN jl7 Corrections: (The following items were deleted from the chart) 05/11 18:19 17:53 05/11/2020 17:53 Discharged to Home. Impression: Person with feared health jl7 complaint in whom no diagnosis is made. Condition is Stable. Forms are Medication Reconciliation Form, Thank You Letter, Antibiotic Education, Prescription Opioid Use. Follow up: Private Physician; When: 2 - 3 days; Reason: Recheck today's complaints, Continuance of care, Re-evaluation by your physician. neida
[2020-05-16 19:57] VITALS: BP 118/82; TEMP 98.2; O2SAT 99
== END 2020-05-11 18:19 | disposition home or self-care (01) ==
LOC: ER 16:38
DX: Z71.1 Person with feared health complaint in whom no diagnosis is made (principal); F90.9 Attention-deficit hyperactivity disorder, unspecified type; Z88.6 Allergy status to analgesic agent
CPT/HCPCS: 36415; 80048; 82550; 99283

== ENCOUNTER 2022-02-06 20:41 | Emergency (ER) | payer SELFPAY ==
--- OUTSIDE RECORDS SUMMARY | 2022-02-06 20:44 | XMS REPORT | Continuity of Care Document ---
:1995 Author Organization [facility] t Address [address] [place] [address] [address] [place] [address] Care Team Providers Name Role Phone JOSH MATTHEW Attending Clinician Unavailable DEMARCUS GANDARA Attending Clinician Unavailable Payers Payer Name Policy Type Policy Number Effective Date Expiration Date S paula [facility] 2019 00:00:00 Problems This patient has no known problems. Allergies, Adverse Reactions, Alerts Allergy Allergy Status Severity Reaction(s) Onset Inactive Treating Comm ents Source Name Type Date Date Clinician NO KNOWN Drug Active [facility] ALLERGIE Class [facility] Medications This patient has no known medications. Procedures This patient has no known procedures. Encounters Start End Encounter Admission Attending Care Care Encounter Source Date/Time Date/Time Type Type Clinicians Facility Department ID 2020-07-11 2020-07-11 Outpatient Brendan MATTHEW [facility] [id number] [employer] 11:40:00 12:14:50 JOSH [facility] 2020-07-06 2020-07-06 Outpatient Brendan GANDARA [facility] [id number] [employer] 14:40:00 14:58:21 DEMARCUS [facility] Results This patient has no known results.
--- NOTE | 2022-02-06 21:06 | ER ---
Nurse's Notes [facility] Name: Will Wilson Age: 27 yrs Sex: Male : 1995 Arrival Date: 02/06/2022 Time: 20:42 Bed Waiting Private MD: Jeet Cobos Diagnosis: Assessment: 02/06 21:03 General: Pt called from lobby. Registration reports that pt left ED. kb3 ED Course: 20:42 Patient arrived in ED. mr 20:42 Jeet Cobos MD is Private Physician. mr 20:47 Fracisco Downing NP is PHCP. pm1 20:47 Marko Gan MD is Attending Physician. pm1 Administered Medications: No medications were administered Outcome: 21:05 Patient left the ED. kb3 Signatures: Joyce Barrios mr Fracisco Downing, TIMOTHY ANCIENT [employer] CURATOR pm1 Tawanna Tirado, RN RN kb3
== END 2022-02-06 21:05 | disposition left against medical advice (07) ==
LOC: ER 20:41
DX: Z02.9 Encounter for administrative examinations, unspecified (principal)

== ENCOUNTER 2024-01-20 07:19 | Emergency (ER) | payer SELFPAY ==
--- NOTE | 2024-01-20 07:34 | ER ---
Nurse's Notes [facility] Name: Will Wilson Age: 29 yrs Sex: Male : 1995 Arrival Date: 01/20/2024 Time: 07:19 Bed 14 Private MD: Diagnosis: Cellulitis of left toe Presentation: 01/19 07:29 Chief complaint: Patient states: Cut L great toe on blade at work 2 days ago. States ll1 its red, swollen. No fever. Coronavirus screen: Client denies travel out of the [place] in the last 14 days. At this time, the client does not indicate any symptoms associated with coronavirus-19. Ebola Screen: Patient denies travel to an Ebola-affected area in the 21 days before illness onset. Initial Sepsis Screen: Does the patient meet any 2 criteria? No. Patient's initial sepsis screen is negative. Does the patient have a suspected source of infection? No. Patient's initial sepsis screen is negative. Risk Assessment: Do you want to hurt yourself or someone else? Patient reports no desire to harm self or others. Onset of symptoms was January 19, 2024. 07:29 Method Of Arrival: Ambulatory ll1 07:29 Acuity: CHER 4 ll1 Triage Assessment: 07:30 General: Appears distressed, Behavior is calm, cooperative, appropriate for age. Pain: ll1 Complains of pain in left foot Pain currently is 6 out of 10 on a pain scale. Quality of pain is described as aching. Derm: Reports pain laceration L great toe. Musculoskeletal: Circulation, motion, and sensation intact. Capillary refill < 3 seconds. 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 - Infectious Disease History:: Denies. - Social history:: Smoking status: Patient denies any tobacco usage or history of. - Family history:: not pertinent. - Hospitalizations: : No recent hospitalization is reported. Screenin:33 [facility] ED Fall Risk Assessment (Adult) History of falling in the last 3 months, dd2 including since admission No falls in past 3 months (0 pts) Confusion or Disorientation No (0 pts) Intoxicated or Sedated No (0 pts) Impaired Gait No (0 pts) Mobility Assist Device Used No (0 pt) Altered Elimination No (0 pt) Score/Fall Risk Level 0 - 2 = Low Risk Oriented to surroundings, Maintained a safe environment, Hourly rounding (assess needs \T\ fall precautionary measures) done. Abuse screen: Denies threats or abuse. Nutritional screening: No deficits noted. Tuberculosis screening: No symptoms or risk factors identified. Assessment: 07:33 General: Appears in no apparent distress. Behavior is calm, cooperative. Pain: dd2 Complains of pain in Left first toenail. Neuro: No deficits noted. Cardiovascular: No deficits noted. Respiratory: No deficits noted. GI: No deficits noted. : No deficits noted. EENT: No deficits noted. Derm: No deficits noted. Derm: Skin is red, Skin temperature is warm Mild edema. Musculoskeletal: No deficits noted. Vital Signs: 07:29 BP 117 / 89; Pulse 98; Resp 16; Temp 97.4; Pulse Ox 100% on R/A; Weight 79.38 kg; ko1 Height 5 ft. 7 in. ; Pain 6/10; 08:06 BP 119 / 82; Pulse 84; Resp 15; Pulse Ox 99% ; dd2 07:29 Body Mass Index 27.41 (79.38 kg, 170.18 cm) ko1 07:29 Pain Scale: Adult ko1 ED Course: 07:22 Patient arrived in ED. ra3 07:22 Marko Gan MD is Attending Physician. rn 07:28 BETY NICHOLAS RN is Primary Nurse. dd2 07:28 Arm band placed on Patient placed in an exam room, on a stretcher. ll1 07:30 Triage completed. ll1 07:33 Patient has correct armband on for positive identification. Bed in low position. Call dd2 light in reach. Side rails up X 1. Provided Education on: call light, medication. Client placed on continuous cardiac and pulse oximetry monitoring. NIBP monitoring applied. 07:33 No provider procedures requiring assistance completed. Patient did not have IV access dd2 during this emergency room visit. Administered Medications: 07:45 Drug: Tetanus-Diphtheria Toxoid IM Adult 0.5 ml IM once; Provide Vaccine Information dd2 Statement (VIS). {Novelty Chain Maker: June [employer]; Exp: FriMar 21 2026; Lot #: [id number]; Series: of ; Patient Consent: Obtained; Date/Time: ; Source Name: Will Wilson; Source Relationship: Self; Address Information: [address] [place] [address]; ; Education: Provided; VIS Presented Date: ; VIS Publication: Tetanus/Diphtheria (Td) Vaccine VIS 09/10/2016 (historic)} Route: IM; Site: right deltoid; 08:00 Follow up: Response: (VIS) Vaccine information sheet provided today. Questions and/or dd2 concerns addressed. VIS edition date: Jan 05, 2021.; No adverse reaction Medication: 07:39 Vaccine Information Statement (VIS) provided today. Questions and/or concerns dd2 addressed. VIS edition date: January 05, 2021. Outcome: 07:34 Discharge ordered by . rn 08:07 Discharged to home ambulatory, dd2 08:07 Condition: stable 08:07 Discharge instructions given to patient, Instructed on discharge instructions, follow up and referral plans. medication usage, wound care, Demonstrated understanding of instructions, follow-up care, medications, wound care, Prescriptions given X 1, 08:09 Patient left the ED. dd2 Signatures: Marko Gan MD MD rn Lewis, Lynsay, RN RN ll1 Adri Perdomo RN RN [email or web address] Akilah Cavanaugh ra3 BETY NICHOLAS RN RN dd2 Corrections: (The following items were deleted from the chart) 07:34 07:29 Resp 16bpm; Temp 97.4F; 79.38 kg; Height 5 ft. 7 in.; BMI: 27.4; Pain 6/10, ko1 Adult; ll1
--- NOTE | 2024-01-20 07:34 | EDPHYS ---
Physician Documentation [facility] Name: Will Wilson Age: 29 yrs Sex: Male : 1995 Arrival Date: 01/20/2024 Time: 07:19 Bed 14 Private MD: ED Physician Marko Gan HPI: 01/19 07:31 This 29 yrs old Male presents to ER via Ambulatory with complaints of Toe rn Injury - work related. 07:31 This 29 yrs old Male presents to ER via Ambulatory with complaints of Toe rn Injury. 07:31 The patient presents with an injury, pain. Onset: The symptoms/episode began/occurred rn yesterday. Modifying factors: The symptoms are alleviated by nothing, the symptoms are aggravated by nothing. Severity of symptoms: At their worst the symptoms were moderate, in the emergency department the symptoms have improved. 07:31 The complaints affect the left foot. Patient reports walking in parents yard, javid rn blade went through his sock, was not wearing shoes, cut his left great toe along nail. Woke up today with pain and swelling to the area and expressed a little pus. No fever or chills. States last tetanus was approximately 10 years ago. Historical: - Allergies: 07:28 Ibuprofen (Hives); ll1 - PMHx: 07:28 ADD/ADHD; Anxiety; ll1 - PSHx: 07:28 None; ll1 - Immunization history:: Adult Immunizations up to date. - Infectious Disease History:: Denies. - Social history:: Smoking status: Patient denies any tobacco usage or history of. - Family history:: not pertinent. - Hospitalizations: : No recent hospitalization is reported. ROS: 07:31 Constitutional: Negative for fever, chills, and weight loss, MS/Extremity: Positive for rn pain and swelling to the left great toe Exam: 07:31 Constitutional: This is a well developed, well nourished patient who is awake, alert, rn and in no acute distress. MS/ Extremity: Pulses equal, no cyanosis. Neurovascular intact. Full, normal range of motion. Equal circumference. Medial nail edge of left great toe with mild inflammation and erythema. No purulence expelled with pressure. No fluctuance. Vital Signs: 07:29 BP 117 / 89; Pulse 98; Resp 16; Temp 97.4; Pulse Ox 100% on R/A; Weight 79.38 kg; ko1 Height 5 ft. 7 in. ; Pain 6/10; 08:06 BP 119 / 82; Pulse 84; Resp 15; Pulse Ox 99% ; dd2 07:29 Body Mass Index 27.41 (79.38 kg, 170.18 cm) ko1 07:29 Pain Scale: Adult ko1 MDM: 07:23 Patient medically screened. rn 07:31 Differential diagnosis: cellulitis, Paronychia. rn 07:33 Data reviewed: vital signs, nurses notes, and as a result, I will discharge patient. rn Counseling: I had a detailed discussion with the patient and/or guardian regarding the historical points, exam findings, and any diagnostic results supporting the discharge/admit diagnosis, the need for outpatient follow up, to return to the emergency department if symptoms worsen or persist or if there are any questions or concerns that arise at home. Special discussion: I discussed with the patient/guardian in detail that at this point there is no indication for admission to the hospital. It is understood, however, that if the symptoms persist or worsen the patient needs to return immediately for re-evaluation. Administered Medications: 07:45 Drug: Tetanus-Diphtheria Toxoid IM Adult 0.5 ml IM once; Provide Vaccine Information dd2 Statement (VIS). {Education Spec: [employer]; Exp: FriMar 21 2026; Lot #: [id number]; Series: 1 of 1; Patient Consent: Obtained; Date/Time: ; Source Name: Will Wilson; Source Relationship: Self; Address Information: [address] [place] [id number]; ; Education: Provided; VIS Presented Date: ; VIS Publication: Tetanus/Diphtheria (Td) Vaccine VIS 09/10/2016 (historic)} Route: IM; Site: right deltoid; 08:00 Follow up: Response: (VIS) Vaccine information sheet provided today. Questions and/or dd2 concerns addressed. VIS edition date: Jan 05, 2021.; No adverse reaction Disposition Summary: 01/20/24 07:34 Discharge Ordered Notes: Location: Home rn Problem: new rn Symptoms: have improved rn Condition: Stable rn Diagnosis - Cellulitis of left toe rn Followup: rn - With: Private Physician - When: As needed - Reason: Recheck today's complaints, Re-evaluation by your physician Discharge Instructions: - Discharge Summary Sheet rn - Cellulitis, Adult rn Forms: - Medication Reconciliation Form rn - Antibiotic retort kiln burner - Prescription Opioid Use rn - Patient Portal Instructions rn - Leadership Thank You Letter rn - Work release form dd2 Prescriptions: - Bactrim DS 800-160 mg Oral Tablet - take 1 tablet ORAL route every 12 hours for 10 days; 20 tablet; Refills: 0, rn Product Selection Permitted Signatures: Marko Gan MD MD rn Lewis, Lynsay, RN RN ll1 BETY NICHOLAS RN RN dd2
[2024-01-20] MEDS ORDERED: TDAP (DIPHTH,PERTUSS(ACELL),TET VAC) 0.5 ML VIAL IMVAC ONE (07:38)
[2024-01-20 08:13] VITALS: TEMP 97.4
[2024-01-20 08:15] VITALS: BP 119/82; O2SAT 99
--- OUTSIDE RECORDS SUMMARY | 2024-01-20 14:40 | XMS REPORT | Continuity of Care Document ---
Author Name Unknown Address [address] [facility] [address] [place] [address] [facility] Address [address] [facility] 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 Name Role Phone JOSH MATTHEW Attending Clinician Unavailable DEMARCUS GANDARA Attending Clinician Unavailable Payers Payer Name Policy Type Policy Number Effective Date Expirati on Date Source [facility] [id number] 2019 00:00:00 Allergies, Adverse Reactions, Alerts Allergy Name Allergy Type Status Severity Reaction(s) Onset Date Inactive Date Treating Clinician Comments Source NO KNOWN ALLERGIE S Drug Class Active [facility] Encounters Start Date/Time End Date/Time Encounter Type Admission Type Attending Clinicians Care Facility Care Department Encounter ID Source 2020-07-11 11:40:00 2020-07-11 12:14:50 Outpatient JOSH PIKE [facility] [id number] [facility] 2020-07-06 14:40:00 2020-07-06 14:58:21 Outpatient DEMARCUS CHINO [facility] [id number] [facility]
== END 2024-01-20 08:09 | disposition home or self-care (01) ==
LOC: ER 07:19
DX: L03.032 Cellulitis of left toe (principal)

== ENCOUNTER 2024-04-13 11:25 | Emergency (ER) | payer SELFPAY ==
--- OUTSIDE RECORDS SUMMARY | 2024-04-13 11:27 | XMS REPORT | Continuity of Care Document ---
Author Name Unknown Address [address] [facility] [address] [place] [address] [facility] Address [address] [facility] 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 Name Role Phone JOSH MATTHEW Attending Clinician Unavailable DEMARCUS GANDARA Attending Clinician Unavailable Payers Payer Name Policy Type Policy Number Effective Date Expirati on Date Source [facility] [id number] 2019 00:00:00 Allergies, Adverse Reactions, Alerts Allergy Name Allergy Type Status Severity Reaction(s) Onset Date Inactive Date Treating Clinician Comments Source NO KNOWN ALLERGIE S Drug Class Active [facility] Encounters Start Date/Time End Date/Time Encounter Type Admission Type Attending Clinicians Care Facility Care Department Encounter ID Source 2020-07-11 11:40:00 2020-07-11 12:14:50 Outpatient JOSH PIKE [facility] [id number] [facility] 2020-07-06 14:40:00 2020-07-06 14:58:21 Outpatient DEMARCUS CHINO [facility] [id number] [facility]
[2024-04-13] MEDS ORDERED: ACETAMINOPHEN 500 MG TAB ONE (11:51)
--- NOTE | 2024-04-13 12:33 | RAD REPORT ---
EXAM: Foot Right 3 View HISTORY: PAIN COMPARISON: None FINDINGS: Bones: No acute fracture identified. Alignment:No significant malalignment. Degenerative changes:Moderate degenerative changes are present at the first MTP joint. Other: n/a IMPRESSION: No evidence of acute osseous abnormality involving the imaged foot.
--- NOTE | 2024-04-13 12:41 | ER ---
Nurse's Notes [facility] Name: Will Wilson Age: 29 yrs Sex: Male : 1995 Arrival Date: 04/13/2024 Time: 11:25 Bed 9 Private MD: Diagnosis: Pain in right foot Presentation: 04/13 11:33 Chief complaint: Patient states: R foot pain for 1 day. No known trauma. Coronavirus ll1 screen: Client denies travel out of the [place] in the last 14 days. At this time, the client does not indicate any symptoms associated with coronavirus-19. Ebola Screen: Patient denies travel to an Ebola-affected area in the 21 days before illness onset. Initial Sepsis Screen: Does the patient meet any 2 criteria? No. Patient's initial sepsis screen is negative. Does the patient have a suspected source of infection? No. Patient's initial sepsis screen is negative. Risk Assessment: Do you want to hurt yourself or someone else? Patient reports no desire to harm self or others. Onset of symptoms was April 13, 2024. 11:33 Method Of Arrival: Ambulatory ll1 11:33 Acuity: CHER 4 ll1 Triage Assessment: 11:35 General: Appears in no apparent distress. uncomfortable, Behavior is calm, cooperative. rs5 Pain: Complains of pain in right foot. Historical: - Allergies: 11:30 Ibuprofen (Hives); ss - PMHx: 11:30 ADD/ADHD; Anxiety; ss - PSHx: 11:33 None; ll1 - Immunization history:: Adult Immunizations up to date. - Infectious Disease History:: Denies. - Social history:: Smoking status: Patient denies any tobacco usage or history of. Screenin:35 [facility] ED Fall Risk Assessment (Adult) History of falling in the last 3 months, rs5 including since admission No falls in past 3 months (0 pts) Confusion or Disorientation No (0 pts) Intoxicated or Sedated No (0 pts) Impaired Gait No (0 pts) Mobility Assist Device Used No (0 pt) Altered Elimination No (0 pt) Score/Fall Risk Level 0 - 2 = Low Risk Oriented to surroundings, Maintained a safe environment. Abuse screen: Denies threats or abuse. Nutritional screening: No deficits noted. Tuberculosis screening: No symptoms or risk factors identified. Assessment: 11:33 General: Appears in no apparent distress. comfortable, Behavior is calm, cooperative. rs5 Pain: Complains of pain in right foot Pain currently is 5 out of 10 on a pain scale. Quality of pain is described as aching, Is continuous. Neuro: Level of Consciousness is awake, alert, obeys commands, Oriented to person, place, time, situation. Cardiovascular: Patient's skin is warm and dry. Respiratory: Airway is patent Respiratory effort is even, unlabored, Respiratory pattern is regular, symmetrical. GI: Abdomen is round non-distended, Abd is soft and non tender X 4 quads. : No signs and/or symptoms were reported regarding the genitourinary system. EENT: No signs and/or symptoms were reported regarding the EENT system. Derm: Skin is intact, Skin is pink, warm \T\ dry. Musculoskeletal: Range of motion: intact in all extremities. 12:50 Reassessment: Patient and/or family updated on plan of care and expected duration. Pain rs5 level reassessed. Patient is alert, oriented x 3, equal unlabored respirations, skin warm/dry/pink. Vital Signs: 11:33 BP 140 / 84; Pulse 94; Resp 15; Temp 98.2; Pulse Ox 99% ; Weight 79.38 kg; Height 5 ft. ll1 7 in. ; Pain 7/10; 12:40 BP 135 / 81; Pulse 80; Resp 17; Pulse Ox 99% on R/A; rs5 11:33 Body Mass Index 27.41 (79.38 kg, 170.18 cm) ll1 11:33 Pain Scale: Adult ll1 ED Course: 11:28 Patient arrived in ED. mr 11:30 Arm band placed on. ss 11:31 Georgi Hays DO is Attending Physician. ms3 11:34 Triage completed. ll1 11:35 Patient has correct armband on for positive identification. Placed in gown. Bed in low rs5 position. Call light in reach. Side rails up X2. 11:35 No provider procedures requiring assistance completed. rs5 11:51 Margarito Cadena, RN is Primary Nurse. rs5 12:26 Foot Right 3 View XRAY In Process Unspecified. EDMS 12:41 Wilmer Washington DO is Referral Physician. ms3 12:45 Provided Education on: discharge instructions . rs5 12:55 Patient did not have IV access during this emergency room visit. rs5 Administered Medications: 11:56 Drug: Acetaminophen PO 1000 mg PO once Route: PO; rs5 12:30 Follow up: Response: No adverse reaction rs5 Medication: 11:35 VIS not applicable for this client. rs5 Outcome: 12:41 Discharge ordered by MD. ms3 12:52 Patient left the ED. rs5 12:55 Discharged to home ambulatory, rs5 12:55 Condition: stable rs5 12:55 Discharge instructions given to patient, family, Instructed on discharge instructions, follow up and referral plans. Demonstrated understanding of instructions, follow-up care, 13:03 Patient left the ED. rs5 Signatures: Dispatcher [employer] EDMS BarriosJoyce hanson, Shyam Reg mr Bailey Duggan, RN RN ss Yanely Monsalve RN RN ll1 Georgi Hays, DO DO ms3 Margarito Cadena RN RN rs5 Corrections: (The following items were deleted from the chart) 13:55 11:33 Pain: Complains of pain in left foot Pain currently is 5 out of 10 on a pain rs5 scale. Quality of pain is described as aching, Is continuous, rs5 13:57 11:50 Provided Education on: discharge instructions . rs5 rs5
--- NOTE | 2024-04-13 12:41 | EDPHYS ---
Physician Documentation [facility] Name: Will Wilson Age: 29 yrs Sex: Male : 1995 Arrival Date: 04/13/2024 Time: 11:25 Bed 9 Private MD: ED Physician Georgi Hays HPI: 04/13 14:59 This 29 yrs old Male presents to ER via Ambulatory with complaints of Foot ms3 Pain. 14:59 29-year-old male with past medical history of ADD/ADHD, anxiety presents to the [facility] emergency department for waking up with pain in the right foot today. Initially, the pain was felt in between the knuckles of the right hand, resembling carpal tunnel syndrome, before moving to the right foot. There is no history of trauma, twisting, or excessive walking. There are no associated symptoms of nausea, vomiting, fever, or chills. The patient has not identified any factors that alleviate or worsen the pain.. Historical: - Allergies: 11:30 Ibuprofen (Hives); ss - PMHx: 11:30 ADD/ADHD; Anxiety; ss - PSHx: 11:33 None; ll1 - Immunization history:: Adult Immunizations up to date. - Infectious Disease History:: Denies. - Social history:: Smoking status: Patient denies any tobacco usage or history of. ROS: 14:59 Constitutional: Negative for fever, and chills. Neck: Negative for injury, pain, and ms3 swelling, Cardiovascular: Negative for chest pain, and palpitations. Respiratory: Negative for shortness of breath, cough, wheezing, and pleuritic chest pain, Abdomen/GI: Negative for abdominal pain, nausea, vomiting, diarrhea, and constipation, 14:59 MS/extremity: Positive for Right foot pain, Exam: 14:59 Constitutional: This is a well developed, well nourished patient who is awake, alert, ms3 and in no acute distress. Chest/axilla: Normal chest wall appearance and motion. Nontender with no deformity. Cardiovascular: Regular rate and rhythm with a normal S1 and S2. No gallops, murmurs, or rubs. Normal PMI, no JVD. No pulse deficits. Respiratory: Lungs have equal breath sounds bilaterally, clear to auscultation and percussion. No rales, rhonchi or wheezes noted. No increased work of breathing, no retractions or nasal flaring. 14:59 Musculoskeletal/extremity: Extremities: noted in the Right foot: pain, There is no evidence of erythema, swelling, Vital Signs: 11:33 BP 140 / 84; Pulse 94; Resp 15; Temp 98.2; Pulse Ox 99% ; Weight 79.38 kg; Height 5 ft. ll1 7 in. ; Pain 7/10; 12:40 BP 135 / 81; Pulse 80; Resp 17; Pulse Ox 99% on R/A; rs5 11:33 Body Mass Index 27.41 (79.38 kg, 170.18 cm) ll1 11:33 Pain Scale: Adult ll1 MDM: 11:39 Medical Screening Exam initiated ms3 14:59 Differential diagnosis: fracture, sprain, Plantar fasciitis. Data reviewed: vital ms3 signs, nurses notes, radiologic studies, and as a result, I will discharge patient. I considered the following discharge prescriptions or medication management in the emergency department Medications were administered in the Emergency Department. See MAR. Counseling: I had a detailed discussion with the patient and/or guardian regarding the historical points, exam findings, and any diagnostic results supporting the discharge/admit diagnosis, radiology results, the need for outpatient follow up, to return to the emergency department if symptoms worsen or persist or if there are any questions or concerns that arise at home. Special discussion: I discussed with the patient/guardian in detail that at this point there is no indication for admission to the hospital. It is understood, however, that if the symptoms persist or worsen the patient needs to return immediately for re-evaluation. ED course: On reevaluation patient is alert and orient x 4, no apparent distress, ambulatory in the emergency department. Patient offered crutches and declines. Patient to follow-up with primary care physician to 3 days. Patient understands and agrees with plan. All questions were answered. Return precautions discussed include worsening symptoms, fevers, chills, or any other concerns.. 04/13 11:39 Order name: Foot Right 3 View XRAY; Complete Time: 12:35 ms3 Administered Medications: 11:56 Drug: Acetaminophen PO 1000 mg PO once Route: PO; rs5 12:30 Follow up: Response: No adverse reaction rs5 Disposition Summary: 04/13/24 12:41 Discharge Ordered Notes: Location: Home ms3 Condition: Stable ms3 Diagnosis - Pain in right foot ms3 Followup: ms3 - With: Wilmer Washington, DO - When: 2 - 3 days - Reason: Recheck today's complaints Discharge Instructions: - Discharge Summary Sheet ms3 - Musculoskeletal Pain ms3 Forms: - Medication Reconciliation Form ms3 - Antibiotic Education ms3 - Prescription Opioid Use ms3 - Patient Portal Instructions ms3 - Leadership Thank You Letter ms3 - Work release form rs5 Signatures: Dispatcher [employer] Bailey Ayers RN RN ss Yanely Monsalve RN RN ll1 Georgi Hays, DO DO ms3 Margarito Cadena RN RN rs5
[2024-04-13 13:00] VITALS: BP 140/84; TEMP 98.2; O2SAT 99
== END 2024-04-13 13:03 | disposition home or self-care (01) ==
LOC: ER 11:25
DX: M79.671 Pain in right foot (principal)

== ENCOUNTER 2024-05-09 00:51 | Emergency (ER) | payer SELFPAY ==
--- OUTSIDE RECORDS SUMMARY | 2024-05-09 00:54 | XMS REPORT | Continuity of Care Document ---
Author Name Unknown Address [address] [facility] [address] [place] [address] [facility] Address [address] [facility] 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 Name Role Phone JOSH MATTHWE Attending Clinician Unavailable DEMARCUS GANDARA Attending Clinician Unavailable Payers Payer Name Policy Type Policy Number Effective Date Expirati on Date Source [facility] [id number] 2019 00:00:00 Allergies, Adverse Reactions, Alerts Allergy Name Allergy Type Status Severity Reaction(s) Onset Date Inactive Date Treating Clinician Comments Source NO KNOWN ALLERGIE S Drug Class Active [facility] Encounters Start Date/Time End Date/Time Encounter Type Admission Type Attending Clinicians Care Facility Care Department Encounter ID Source 2020-07-11 11:40:00 2020-07-11 12:14:50 Outpatient JOSH PIKE [facility] [id number] [facility] 2020-07-06 14:40:00 2020-07-06 14:58:21 Outpatient DEMARCUS CHINO [facility] [id number] [facility]
[2024-05-09] MEDS ORDERED: DIPHENHYDRAMINE 50 MG/ML VIAL ONE (01:23)
[2024-05-09] MEDS ORDERED: METOCLOPRAMIDE 10 MG/2mL INJ ONE (01:23)
[2024-05-09] MEDS ORDERED: NA CHLORIDE 0.9% 250 ML ONE (01:24)
[2024-05-09] MEDS ORDERED: FAMOTIDINE 20 MG/2 ML VIAL IV ONE (01:24)
[2024-05-09] MEDS ORDERED: MORPHINE 4 MG/ML SYR ONE (01:24)
[2024-05-09 01:31] LABS: Absolute Eosinophils 0.4 K/uL (0-0.5); Absolute Lymphocytes (CBC) 2.3 K/uL (0.7-4.9); Absolute Monocytes 0.6 K/uL (0.1-1.3); Absolute Neutrophil 9.3 K/uL (1.8-8.0); Basophils % 0.3 % (0-1.3); Eosinophils % 3.1 % (0-4.4); Hematocrit 45.1 % (39.6-49.0); Hemoglobin 15.4 g/dL (13.6-17.9); Lymphocytes % 18.2 % (15.3-44.8); MCH 29.9 pg (27.0-35.0); MCHC 34.2 g/dL (32.0-36.0); MCV 87.5 fL (80-100); MPV 7.9 fL (7.6-11.3); Monocytes % 4.5 % (3.3-12.3); Neutrophils % 73.9 % (41.7-73.7); Nucleated Red Blood Cells % 0.1 % (0-0); Platelets 276 thou/uL (152-406); RBC Red Blood Cell Count 5.16 M/uL (4.33-5.43); Red Cell Distribution Width 12.9 % (12.1-15.2)
[2024-05-09 01:49] LABS: Anion Gap 12.4 mEq/L (5.0-15.0); Bilirubin Total 1.1 mg/dL (0.2-1.0); Potassium 3.4 mEq/L (3.5-5.1)
--- NOTE | 2024-05-09 03:47 | EDPHYS ---
Physician Documentation [facility] Nena Name: Will Wilson Age: 29 yrs Sex: Male : 1995 Arrival Date: 05/09/2024 Time: 00:51 Bed 15 Private MD: ED Physician Ziggy Galan HPI: 05/09 01:15 This 29 yrs old Male presents to ER via Unassigned with complaints of ec2 Currently Intoxicated, muscle cramps. 01:15 Patient arrives today for evaluation of upper abdominal pain. Reports multiple ec2 alcoholic beverages and started having some upper abdominal pain. Reports some associated nausea and vomiting as well. No urinary complaints. No cough and cold symptoms. No previous abdominal surgeries.. Historical: - Allergies: 01:16 Ibuprofen (Hives); ec2 - Immunization history:: Adult Immunizations up to date. - Infectious Disease History:: Denies. - Social history:: Smoking status: Patient denies any tobacco usage or history of. ROS: 01:16 Constitutional: as per hpi ec2 Exam: 01:16 Constitutional: GEN: NAD Head: atraumatic Eyes: EOMI Ears: External ears are ec2 normal. CV: regular rate LUNGS: no respiratory distress ABD: mildly tender in the epigastrumSKIN: no evidence of rashes MSK: no evidence of trauma Vital Signs: 01:02 BP 113 / 78; Pulse 76; Resp 14; Temp 97.5; Pulse Ox 100% on R/A; Weight 79.38 kg; al5 Height 5 ft. 7 in. ; 01:35 BP 91 / 63; Pulse 72; Resp 19; Pulse Ox 100% on R/A; Pain 8/10; rg5 02:43 BP 95 / 52; Pulse 69; Resp 17; Pulse Ox 98% on R/A; Pain 0/10; rg5 03:30 BP 91 / 49; Pulse 70; Resp 12; Pulse Ox 96% ; jj7 04:15 BP 96 / 50; Pulse 70; Resp 14; Temp 97.9; Pulse Ox 100% on R/A; Pain 0/10; jj7 01:02 Body Mass Index 27.41 (79.38 kg, 170.18 cm) al5 01:35 Pain Scale: Adult rg5 02:43 Pain Scale: Adult rg5 04:15 Pain Scale: Adult jj7 MDM: 01:03 Medical Screening Exam initiated ec2 01:16 Data reviewed: vital signs, nurses notes. ED course: Patient arrives today for ec2 evaluation of upper abdominal pain in setting of recent alcohol use. Examination is revealing for abdominal findings as above. Will obtain lab work, CT imaging and treat the patient symptoms. Differential diagnosis include processes such as alcoholic gastritis, pancreatitis, gallbladder pathology.. 03:47 ED course: CT abdomen pelvis with no emergent process identified. Will discharge home. ec2 Instructed him on alcohol cessation. Return precautions given.. 05/09 01:13 Order name: CBC with Diff; Complete Time: 01:53 ec2 05/09 01:13 Order name: CMP; Complete Time: :53 ec2 05/09 01:13 Order name: Lipase; Complete Time: :53 ec2 05/09 01:13 Order name: CT Abd/Pelvis - IV Contrast Only ec2 05/09 01:13 Order name: IV Saline Lock; Complete Time: 01:15 ec2 05/09 01:13 Order name: Labs collected and sent; Complete Time: 01:15 ec2 Administered Medications: 01:30 Drug: metoCLOPramide IVP 10 mg IVP once; over 1 to 2 minutes Route: IVP; Site: left rg5 antecubital; 02:03 Follow up: Response: No adverse reaction; Pain is decreased rg5 01:30 Drug: diphenhydrAMINE IVP 25 mg IVP once Route: IVP; Site: left antecubital; rg5 02:03 Follow up: Response: No adverse reaction; Pain is decreased rg5 01:30 Drug: NS 0.9% IV 250 ml IV at bolus once; to be given as a bolus over 30 minutes Route: rg5 IV; Rate: bolus; Site: left antecubital; 02:03 Follow up: IV Status: Completed infusion; IV Intake: 250ml rg5 01:30 Drug: Famotidine IVP 20 mg IVP once; dilute with 10 mL 0.9% NaCl; give over 2 minutes rg5 Route: IVP; Site: left antecubital; 02:03 Follow up: Response: No adverse reaction rg5 01:34 Drug: morphine IVP or IV 4 mg IVP once over 4 mins Route: IVP; Infused Over: 4 mins; rg5 Site: left antecubital; 02:04 Follow up: Response: No adverse reaction; Pain is decreased rg5 Disposition Summary: 05/09/24 03:47 Discharge Ordered Notes: Location: Home ec2 Condition: Stable ec2 Diagnosis - Abdominal pain, unspecified ec2 - Alcoholic gastritis without bleeding ec2 Followup: ec2 - With: Private Physician - When: - Reason: Re-evaluation by your physician Discharge Instructions: - Discharge Summary Sheet ec2 - Abdominal Pain, Adult ec2 Forms: - Medication Reconciliation Form ec2 - Antibiotic Education ec2 - Prescription Opioid Use ec2 - Patient Portal Instructions ec2 - Leadership Thank You Letter ec2 Signatures: Dispatcher [employer] Ziggy Price MD MD ec2 Rasta Bryan RN RN rg5 Faviola Figueroa RN RN al5
--- NOTE | 2024-05-09 03:47 | ER ---
Nurse's Notes [facility] Hank Name: Will Wilson Age: 29 yrs Sex: Male : 1995 Arrival Date: 05/09/2024 Time: 00:51 Bed 15 Private MD: Diagnosis: Abdominal pain, unspecified;Alcoholic gastritis without bleeding Presentation: 05/09 01:02 Chief complaint: Parent and/or Guardian states: c/o abdominal cramping, nausea, and al5 shortness of breath starting within the hour. patient stated to patient mother that the patient has been drinking liquor, last drink was about 4 hours ago. patient denies any drug use. Coronavirus screen: At this time, the client does not indicate any symptoms associated with coronavirus-19. Ebola Screen: No symptoms or risks identified at this time. Initial Sepsis Screen: Does the patient meet any 2 criteria? No. Patient's initial sepsis screen is negative. Does the patient have a suspected source of infection? No. Patient's initial sepsis screen is negative. Risk Assessment: Do you want to hurt yourself or someone else? Patient reports no desire to harm self or others. Onset of symptoms was May 09, 2024. 01:02 Method Of Arrival: Ambulatory al5 01:02 Acuity: CHER 3 al5 Triage Assessment: 01:02 General: Appears in no apparent distress. uncomfortable, Behavior is cooperative. Pain: al5 Complains of pain in abdomen. EENT: No signs and/or symptoms were reported regarding the EENT system. Neuro: Level of Consciousness is awake, obeys commands, Oriented to person, place, time, situation. Cardiovascular: Capillary refill < 3 seconds Patient's skin is warm and dry. Respiratory: Airway is patent Respiratory effort is even, unlabored, Respiratory pattern is regular, symmetrical. GI: Abdomen is flat, non-distended, Reports lower abdominal pain, upper abdominal pain, nausea. : No signs and/or symptoms were reported regarding the genitourinary system. Derm: Skin is intact, is healthy with good turgor, Skin is dry, Skin is normal, Skin temperature is cool. Musculoskeletal: No signs and/or symptoms reported regarding the musculoskeletal system. Historical: - Allergies: 01:16 Ibuprofen (Hives); ec2 - Immunization history:: Adult Immunizations up to date. - Infectious Disease History:: Denies. - Social history:: Smoking status: Patient denies any tobacco usage or history of. Screenin:00 [facility] ED Fall Risk Assessment (Adult) History of falling in the last 3 months, rg5 including since admission No falls in past 3 months (0 pts) Confusion or Disorientation No (0 pts) Intoxicated or Sedated No (0 pts) Impaired Gait No (0 pts) Mobility Assist Device Used No (0 pt) Altered Elimination No (0 pt) Score/Fall Risk Level 0 - 2 = Low Risk Oriented to surroundings, Maintained a safe environment, Hourly rounding (assess needs \T\ fall precautionary measures) done. Abuse screen: Denies threats or abuse. Nutritional screening: No deficits noted. Tuberculosis screening: No symptoms or risk factors identified. Assessment: 01:00 General: Appears in no apparent distress. Behavior is calm, cooperative, appropriate rg5 for age. 01:00 Pain: Complains of pain in abdomen Pain currently is 8 out of 10 on a pain scale. rg5 Quality of pain is described as aching. Neuro: Level of Consciousness is awake, alert, Oriented to person, place, time. Cardiovascular: Denies chest pain. Respiratory: Airway is patent Trachea midline Respiratory effort is even, unlabored, Respiratory pattern is regular, symmetrical. GI: Abdomen is round non-distended, Reports cramping, nausea, vomiting. : No signs and/or symptoms were reported regarding the genitourinary system. EENT: No deficits noted. Derm: Skin is intact, Skin is dry, Skin is normal, Skin temperature is warm. Musculoskeletal: Circulation, motion, and sensation intact. Range of motion: intact in all extremities. 02:28 Reassessment: Patient and/or family updated on plan of care and expected duration. Pain rg5 level reassessed. Patient states feeling better. Patient states symptoms have improved. 03:30 Reassessment: Patient is alert, oriented x 3, equal unlabored respirations, skin jj7 warm/dry/pink. PT SLEEPING, VS STABLE. NO DISTRESS NOTED. MOTHER AT BEDSIDE. Vital Signs: 01:02 BP 113 / 78; Pulse 76; Resp 14; Temp 97.5; Pulse Ox 100% on R/A; Weight 79.38 kg; al5 Height 5 ft. 7 in. ; 01:35 BP 91 / 63; Pulse 72; Resp 19; Pulse Ox 100% on R/A; Pain 8/10; rg5 02:43 BP 95 / 52; Pulse 69; Resp 17; Pulse Ox 98% on R/A; Pain 0/10; rg5 03:30 BP 91 / 49; Pulse 70; Resp 12; Pulse Ox 96% ; jj7 04:15 BP 96 / 50; Pulse 70; Resp 14; Temp 97.9; Pulse Ox 100% on R/A; Pain 0/10; jj7 01:02 Body Mass Index 27.41 (79.38 kg, 170.18 cm) al5 01:35 Pain Scale: Adult rg5 02:43 Pain Scale: Adult rg5 04:15 Pain Scale: Adult jj7 ED Course: 00:52 Patient arrived in ED. im 00:59 Rasta Bryan, RN is Primary Nurse. rg5 01:00 No provider procedures requiring assistance completed. rg5 01:00 Patient has correct armband on for positive identification. Bed in low position. Call rg5 light in reach. Side rails up X 1. Client placed on continuous cardiac and pulse oximetry monitoring. NIBP monitoring applied. traffic monitor specialist on. Pulse ox on. Door closed. Noise minimized. Warm blanket given. 01:02 Arm band placed on right wrist. Patient placed in the treatment room, on a stretcher. al5 01:03 Ziggy Galan MD is Attending Physician. ec2 01:13 Inserted saline lock: 18 gauge in left antecubital area, using aseptic technique. Blood vk collected. Flushed with 10 mL NS. 01:17 CBC with Diff Sent. vk 01:17 CMP Sent. vk 01:17 Lipase Sent. vk 01:18 Triage completed. al5 01:18 Initial lab(s) drawn, by vt, sent to lab. vk 01:46 CT Abd/Pelvis - IV Contrast Only In Process Unspecified. EDMS 02:28 No apparent distress. Resting quietly. Appears to be sleeping. Awaiting radiology rg5 results. 04:15 IV discontinued, intact, bleeding controlled, No redness/swelling at site. Pressure jj7 dressing applied. Administered Medications: 01:30 Drug: metoCLOPramide IVP 10 mg IVP once; over 1 to 2 minutes Route: IVP; Site: left rg5 antecubital; 02:03 Follow up: Response: No adverse reaction; Pain is decreased rg5 01:30 Drug: diphenhydrAMINE IVP 25 mg IVP once Route: IVP; Site: left antecubital; rg5 02:03 Follow up: Response: No adverse reaction; Pain is decreased rg5 01:30 Drug: NS 0.9% IV 250 ml IV at bolus once; to be given as a bolus over 30 minutes Route: rg5 IV; Rate: bolus; Site: left antecubital; 02:03 Follow up: IV Status: Completed infusion; IV Intake: 250ml rg5 01:30 Drug: Famotidine IVP 20 mg IVP once; dilute with 10 mL 0.9% NaCl; give over 2 minutes rg5 Route: IVP; Site: left antecubital; 02:03 Follow up: Response: No adverse reaction rg5 01:34 Drug: morphine IVP or IV 4 mg IVP once over 4 mins Route: IVP; Infused Over: 4 mins; rg5 Site: left antecubital; 02:04 Follow up: Response: No adverse reaction; Pain is decreased rg5 Medication: 01:00 VIS not applicable for this client. rg5 Intake: 02:03 IV: 250ml; Total: 250ml. rg5 Outcome: 03:47 Discharge ordered by . deepa2 04:13 Discharged to home ambulatory, with family, doris 04:13 Condition: improved 04:13 Discharge instructions given to patient, family, Instructed on discharge instructions, Demonstrated understanding of instructions, 04:16 Patient left the ED. jj7 Signatures: Dispatcher [employer] Joel Marc RN RN jj7 Nazia Dang Edwin, MD MD ec2 Abril Bear Rommel, RN RN rg5 Faviola Figueroa RN RN al5
[2024-05-09 09:18] VITALS: BP 96/50; TEMP 97.9; O2SAT 100
--- NOTE | 2024-05-10 15:31 | RAD REPORT ---
EXAM DESCRIPTION: CTABDOMEN PELVIS WITH IV CONTRAST 05/09/2024 3:23 AM SHIELD OPERATOR CLINICAL HISTORY: 29 years, Male, Abdominal pain. COMPARISON: CTAbdomen pelvis 02/07/2022. PROCEDURE: Contrast-enhanced images of the abdomen and pelvis were performed from the lung bases to the ischial tuberosities after the administration of IV contrast. In addition multiplanar reformats in the coronal and sagittal plane were obtained and reviewed. An individualized dose optimization technique, Automated Exposure Control, was utilized for the perfo rmed procedure. FINDINGS: Lung bases: The lung bases demonstrate to be clear. Liver: The liver demonstrated presence of decreased attenuation corresponding to mild fatty infiltrat ion. Gallbladder: The gallbladder demonstrate to be normal. Adrenal glands: The adrenal glands demonstrate to be normal. Pancreas: The pancreas demonstrate to be normal. Spleen: The spleen demonstrate to be within normal limits. Kidneys: The kidneys demonstrate normal uptake of contrast media. There is no evidence for nephrolith iasis and/or hydronephrosis. GI: Grossly the unopacified stomach, small bowel and large bowel demonstrate to be within normal limi ts. No evidence for bowel dilatation and/or free air. The appendix is normal. The large bowel demonstrate presence of mild feca l residue suggesting the possibility of mild fecal stasis. : The urinary bladder demonstrate to be unremarkable. Genitalia: The prostate gland is normal. Abdominal aorta: The aorta demonstrate to be within normal limits. Retroperitoneum:There is no retroperitoneal lymphadenopathy. There is no evidence for ascites and/or abnormal fluid collections. Bones: The bony structures demonstrate to be within normal limits. No evidence for compression deform ity and/or significant skeletal lesions. Soft tissues: The soft tissues demonstrate to be unremarkable. IMPRESSION: Mild fecal residue suggesting the possibility of mild fecal stasis. Mild fatty infiltration of the liver. Electronically signed by: Rony Regalado MD 05/09/2024 03:42 AM SHIELD OPERATOR Due to temporary technical issues with the PACS/Viva[employer] reporting system, reports are being agustin d by the in-house radiologist without review as a courtesy to ensure prompt reporting the interpreting radiologist is fully responsible for the content of the report. Transcribed Date/Time: 05/10/2024 3:31 PM
== END 2024-05-09 04:16 | disposition home or self-care (01) ==
LOC: ER 00:51
DX: K29.20 Alcoholic gastritis without bleeding (principal)
CPT/HCPCS: 36415; 74177; 80053; 83690; 85025; 96361; 96374; 96375; 99285; J1200; J2765; J7050; Q9967